=== PATIENT | male | born 1990 | race Two or more races ===

== ENCOUNTER 2016-08-09 14:25 | Emergency (ER) | payer BC, OTHER ==
[2016-08-09 14:30] VITALS: BP 133/74; PULSE 83; TEMP 98.7; BMI 31.4
--- NOTE | 2016-08-09 15:19 | PDOC ---
History of Present Illness - General Chief Complaint: Bite Stated Complaint: DOG BITE Time Seen by Provider: 08/09/16 14:31 History Source: Patient - History of Present Illness Timing/Duration: other (yesterday) Past History - Past Medical History Allergies/Adverse Reactions: Allergies Allergy/AdvReac Type Severity Reaction Status Date / Time No Known Allergies Allergy Verified 08/09/16 14:30 - Psycho/Social/Smoking Cessation Hx Suicidal Ideation: No Smoking History: Never smoked Information on smoking cessation initiated: No Review of Systems - Review of Systems Constitutional: No: Chills, Fever *Physical Exam - Vital Signs Last Vital Signs Temp Pulse Resp BP Pulse Ox 98.7 F 83 18 133/74 98 08/09/16 14:27 08/09/16 14:27 08/09/16 14:27 08/09/16 14:27 08/09/16 14:27 - Physical Exam General Appearance: Yes: Appropriately Dressed. No: Apparent Distress HEENT: positive: Normal Voice Neck: positive: Supple Respiratory/Chest: negative: Respiratory Distress Male Genitalia: positive: other (no swelling or break in skin to groin, no ttp to testes) Integumentary: positive: Dry, Warm Neurologic: positive: Fully Oriented, Alert, Normal Mood/Affect Medical Decision Making - Medical Decision Making 08/09/16 15:01 25 yo M, no sig hx, presents to ED to be evaluated status post dog bite. Patient states while at a friend's home yesterday afternoon, friend's [place], whose vaccines are up to date as per patient, attacked him, biting him in his groin through his jeans. Had immediate pain to left groin that has since resolved. Pt states when he inspected himself at home, there were no bruise or break in skin but wants to be "checked out". Pt well ramon and stable w / unremarkable exam. As no break in skin, no need for abx prophylaxis or other intervention at this time. Dc w/ reassurance *DC/Admit/Observation/Transfer Diagnosis at time of Disposition: Dog bite Qualifiers: Encounter type: initial encounter Qualified Code(s): W54.0XXA - Bitten by dog, initial encounter - Discharge Dispostion Disposition: HOME Condition at time of disposition: Good - Patient Instructions Additional Instructions: The dog bite you sustained did not cause any significant injury to your skin and therefore, there is no need for antibiotics today
== END 2016-08-09 15:22 | disposition home or self-care (01) ==
LOC: JERFT 14:25
DX: S30.871A Other superficial bite of abdominal wall, initial encounter (principal); W54.0XXA Bitten by dog, initial encounter; Y93.89 Activity, other specified; Y92.098 Other place in other non-institutional residence as the place of occurrence of the external cause; Y99.8 Other external cause status
CPT/HCPCS: 99281-25

== ENCOUNTER 2023-12-14 10:37 | Emergency (ER) | payer OTHER, BC ==
[2023-12-14 10:58] VITALS: BP 126/73; TEMP 98.6; BMI 33.0
[2023-12-14 11:24] VITALS: PULSE 72; RESP 20
[2023-12-14 13:08] LABS: HIV INTERPRETATION NEGATIVE (NEGATIVE)
== END 2023-12-14 11:48 | disposition home or self-care (01) ==
LOC: JERFT 10:37
DX: M54.2 Cervicalgia (principal); M79.10 Myalgia, unspecified site; V47.5XXA Car driver injured in collision with fixed or stationary object in traffic accident, initial encounter; Y92.410 Unspecified street and highway as the place of occurrence of the external cause
CPT/HCPCS: 36415; 86803; 87389; 99283-25